=== PATIENT | male | born 1955 | race Caucasian/White ===

== ENCOUNTER → 2017-02-06 | Outpatient (REF) | LOC: ZLAB.WCH 09:30 | DX: Z01.89 Encounter for other specified special examinations (principal) ==

== ENCOUNTER → 2017-05-13 | Outpatient (REF) | LOC: ZLAB.WCH 18:03 | DX: Z01.89 Encounter for other specified special examinations (principal) ==

== ENCOUNTER → 2017-05-14 | Outpatient (REF) | LOC: ZLAB.WCH 08:58 | DX: Z01.89 Encounter for other specified special examinations (principal) | CPT/HCPCS: G0103 ==

== ENCOUNTER → 2018-05-14 | Outpatient (REF) | LOC: ZLAB.WCH 17:47 | DX: Z01.89 Encounter for other specified special examinations (principal) | CPT/HCPCS: G0103 ==

== ENCOUNTER → 2019-01-25 | Outpatient (CLI) | payer BC | LOC: COL.RAD 08:59 | DX: S72.052A Unspecified fracture of head of left femur, initial encounter for closed fracture (principal); M16.12 Unilateral primary osteoarthritis, left hip ==

== ENCOUNTER → 2024-01-21 | Outpatient (CLI) | payer MEDICARE, BC | LOC: COL.VAS 08:40 | DX: I51.7 Cardiomegaly (principal) ==